=== PATIENT | male | born 1950 | race Caucasian/White ===

== ENCOUNTER 2021-02-26 14:26 | Outpatient (CLI) | payer MEDICARE ==
[2021-02-26 23:24] LABS: SARS-CoV-2 PCR by NAA Not Detected (NotDetected)
== END 2021-02-26 14:27 | disposition home or self-care (01) ==
LOC: CSHLAB 14:26
PROVIDERS: ATTEND Internal Medicine Critical Care Medicine
DX: Z01.812 Encounter for preprocedural laboratory examination (principal); Z20.822 Contact with and (suspected) exposure to COVID-19
CPT/HCPCS: U0003; U0005

== ENCOUNTER 2021-03-03 10:21 | Outpatient (CLI) | payer MEDICARE | END 2021-03-03 10:22 | disposition home or self-care (01) | LOC: CSHCP 10:21 | PROVIDERS: ATTEND Internal Medicine Critical Care Medicine | DX: J44.0 Chronic obstructive pulmonary disease with (acute) lower respiratory infection (principal) | CPT/HCPCS: 94060; 94726; 94729; 94760 ==